=== PATIENT | female | born 1960 | race Caucasian/White ===

== ENCOUNTER 2020-03-15 13:38 | Outpatient (CLI) | payer BC ==
[~2020-03-15] VITALS: Ht 160 cm; Wt 56.8 kg
[2020-03-15 14:06] VITALS: BP 119/59; Ht 160 cm; Wt 56.8 kg
== END 2020-03-15 14:00 ==
LOC: D.OPS 13:38
PROVIDERS: ATTEND Family Medicine
DX: M81.0 Age-related osteoporosis without current pathological fracture (principal)